=== PATIENT | female | born 1995 | race Two or more races ===

== ENCOUNTER 2016-06-21 17:38 | Emergency (ER) | payer MEDICAID, OTHER ==
--- NOTE | 2016-06-21 21:53 | ED ---
Abdominal Pain/Female - HPI Summary HPI Summary: patient arrives with diffuse abdominal pain x1 week which is worse on the R side. She was sent her by her school nurse for r/o of appendicitis. She is pain-free upon arrival and mentions her pain could be caused by period cramps. Denies N/V/C/D. School nurse performed a pelvic exam today with no acute findings. LMP 2 weeks ago. Denies urinary symptoms. - History of Current Complaint Chief Complaint: EDAbdPain Stated Complaint: ABD PAIN Time Seen by Provider: 06/21/16 21:13 Hx Obtained From: Patient ?: No Onset/Duration: Gradual Onset Timing: Constant Severity Initially: Mild Severity Currently: Mild Pain Intensity: 4 Pain Scale Used: 0-10 Numeric Location: Diffuse Radiates: No Character: Cramping Alleviating Factor(s): Nothing - Risk Factors Ovarian Torsion Risk Factor: Reproductive Age Allergies/Adverse Reactions: Allergies Allergy/AdvReac Type Severity Reaction Status Date / Time No Known Allergies Allergy Verified 06/21/16 23:23 PMH/Surg Hx/FS Hx/Imm Hx Previously Healthy: Yes - Immunization History Hx Pertussis Vaccination: No Immunizations Up to Date: No Infectious Disease History: No Infectious Disease History: Denies: Traveled Outside the [place] in Last 30 Days - Social History Occupation: Student Lives: With Family Alcohol Use: None Hx Substance Use: No Substance Use Type: Reports: None Smoking Status (MU): Never Smoked Tobacco Review of Systems Constitutional: Negative Eyes: Negative Cardiovascular: Negative Respiratory: Negative Positive: Abdominal Pain - no pain on arrival Positive: no symptoms reported, see HPI Musculoskeletal: Negative Neurological: Negative Psychological: Normal All Other Systems Reviewed And Are Negative: Yes Physical Exam Triage Information Reviewed: Yes Vital Signs On Initial Exam: Initial Vitals Temp Pulse Resp BP Pulse Ox 98.6 F 106 16 131/71 100 06/21/16 17:42 06/21/16 17:42 06/21/16 17:42 06/21/16 17:42 06/21/16 17:42 Vital Signs Reviewed: Yes Appearance: Positive: Well-Appearing, No Pain Distress, Well-Nourished Skin: Positive: Warm, Skin Color Reflects Adequate Perfusion Head/Face: Positive: Normal Head/Face Inspection Eyes: Positive: AURY Neck: Positive: Supple, Nontender Respiratory/Lung Sounds: Positive: Clear to Auscultation Cardiovascular: Positive: Normal, RRR Abdomen Description: Positive: Nontender, No Organomegaly, Soft Bowel Sounds: Positive: Present Musculoskeletal: Positive: Normal, Strength/ROM Intact Neurological: Positive: Normal, Sensory/Motor Intact, Alert, Oriented to Person Place, Time, Speech Normal Psychiatric: Positive: Normal AVPU Assessment: Alert - [place] Coma Scale Best Eye Response: 4 - Spontaneous Best Motor Response: 6 - Obeys Commands Best Verbal Response: 5 - Oriented Diagnostics - Vital Signs Vital Signs Temp Pulse Resp BP Pulse Ox 06/21/16 19:25 98.2 F 83 18 124/62 100 06/21/16 17:42 98.6 F 106 16 131/71 100 - Laboratory Result Diagrams: 06/21/16 22:05 06/21/16 22:05 Lab Statement: Any lab studies that have been ordered have been reviewed, and results considered in the medical decision making process. Abdominal Pain Fem Course/Dx - Course Course Of Treatment: Labs WNL. Patient feeling improved on exam. While labs pending, patient feeling pressure in lower abd. UA normal. US shows 2.3cm complex right ovarian structure, possibly a collapsed cyst without torsion. Small amount of free fluid. Patient made aware and will follow up with OB. Discussed with patient this is a possible reason for her pain, but still should follow up with PCP as well, as there could be other causes. Otherwise healthy. - Diagnoses Differential Diagnosis: Positive: Appendicitis, Constipation, Pelvic Inflammatory Disease, Urinary Tract Infection Provider Diagnoses: Abdominal pain Discharge - Discharge Plan Condition: Stable Disposition: HOME Patient Education Materials: Ovarian Cyst (ED) Referrals: [facility] SHY Ram [Primary Care Provider] - Phyllis Kendrick MD [Medical Doctor] - Additional Instructions: US shows a 2.3 complex right ovarian structure, possibly a collapsed cyst without torsion. Small amount of free fluid. Please follow up with OBGYN for further workup. You may take Ibuprofen for discomfort. If symptoms worsen, please come back to ED.
[2016-06-21 21:56] VITALS: BP 125/69
[2016-06-21 22:08] LABS: Urine Bilirubin Negative (Negative); Urine Glucose Negative (Negative); Urine Nitrite Negative (Negative)
[2016-06-21 22:11] LABS: Hematocrit 39 % (35-47); Hemoglobin 12.9 g/dl (12.0-16.0); Mean Corpuscular HGB Conc 33 g/dl (31-36); Mean Corpuscular Hemoglobin 28 pg (27-31); Mean Corpuscular Volume 84 fL (80-97); Mean Platelet Volume 10 um3 (7.4-10.4); Red Blood Count 4.68 10^6/ul (4.0-5.4); Red Cell Distribution Width 14 % (10.5-15); White Blood Count 6.1 10^3/ul (3.5-10.8)
[2016-06-21 22:26] LABS: ALT 16 U/L (7-52); AST 16 U/L (13-39); Albumin 4.4 g/dL (3.2-5.2); Alkaline Phosphatase 42 U/L (34-104); Anion Gap 7 mmol/L (2-11); BUN/Creatinine Ratio 20.3 (8-20); Blood Urea Nitrogen 15 mg/dL (6-24); CO2 Carbon Dioxide 24 mmol/L (22-32); Calcium 9.4 mg/dL (8.6-10.3); Chloride 105 mmol/L (101-111); Creatine Kinase 59 U/L (10-223); EGFR African American 127.4 (>60); EGFR Non-African American 99.1 (>60); Globulin 3.4 g/dL (2-4); Glucose 88 mg/dL (70-100); Lipase 39 U/L (11.0-82.0); Magnesium 1.8 mg/dL (1.9-2.7); Potassium 3.6 mmol/L (3.5-5.0); Sodium 136 mmol/L (133-145); Total Protein 7.8 g/dL (6.4-8.9)
--- NOTE | 2016-06-22 07:42 | RAD ---
INDICATION: ] Midline pelvic pain COMPARISON: None. TECHNIQUE: Real-time transabdominal and transvaginal ultrasound examination of the female pelvis including grayscale and Doppler color flow imaging. FINDINGS: Uterus: The uterus is normal in size and echogenicity measuring 7.6 x 3.6 x 5.6 cm. The endometrial stripe is smooth and uniform measuring 8 mm in thickness. Ovaries: The right and left ovary measure 3.7 x 2.0 x 2.4 cm and 3.6 x 1.8 x 1.5 cm, respectively. Normal arterial and venous waveforms are identified. There is an echogenic and avascular structure in the right ovary measuring 2.3 cm in greatest dimension most consistent with an involuting follicle in a woman of this age. There is no free fluid in the cul-de-sac. IMPRESSION: In the right ovary there is an echogenic and avascular structure most consistent with an involuting follicle in a woman of this age.
--- NOTE | 2016-06-22 07:42 | RAD ---
INDICATION: Right lower quadrant pain. COMPARISON: None FINDINGS: Real time ultrasound images of the right lower quadrant were acquired in peterson scale and Doppler color flow. The appendix is not discreetly visualized. Normal loops of bowel are seen. There is no acute inflammatory change, measurable lymphadenopathy or drainable fluid collection. IMPRESSION: Nonvisualization of the appendix.
== END 2016-06-22 01:30 | disposition home or self-care (01) ==
LOC: ED 17:38
DX: R10.9 Unspecified abdominal pain (principal)
CPT/HCPCS: 36415; 76705; 76830; 80053; 81003; 82550; 83690; 83735; 84702; 85025; 99282